=== PATIENT | born 1995 | race African-American/Black ===

== ENCOUNTER 2025-03-30 01:49 | Emergency (ER) | payer BC, SELFPAY ==
[2025-03-30 01:51] VITALS: BP 136/86
[2025-03-30 02:44] VITALS: BMI 26.2
[2025-03-30 02:46] VITALS: BP 126/83
--- NOTE | 2025-03-30 05:24 | ED.GENMED ---
History of Present Illness
General
Chief Complaint: Skin Surface Trauma
Source: patient
Exam Limitations: none
Time Seen by Provider: 03/30/25 04:34
Nursing documentation reviewed up to this point in time: agreed with
History of Present Illness
History of Present Illness:
29-year-old male presenting to the emergency department today with concerns of a cut to his right thumb that occurred from a broken dish at home. Denies any difficulty with movement any numbness or weakness. He is unsure when his last tetanus shot
was received
Review of Systems
Review of Systems
Allergies reviewed?: Yes
All Other Systems: ROS reviewed and negative except as documented in HPI and ROS
Phy Exam
Physical Exam
Physical Exam:
GENERAL: Alert , in no apparent distress
EYE: pupils equal and reactive
NECK: Supple, no significant adenopathy.
ENT: o/p clr, mmm.
CARDIAC: Regular rate and rhythm .
LUNGS: Clear breath sounds bilaterally, no acute respiratory distress, no wheezes/rales/rhonchi
ABDOMEN: Soft, without focal tenderness, no r/g, no cvat
NEUROLOGICAL: Alert and oriented, no focal neuro deficits
SKIN: 2.5 cm laceration to the dorsal aspect of the base of the thumb subcutaneous depth warm and dry, skin intact.
MUSCULOSKELETAL: No edema, well perfused.
PSYCH: Normal and appropriate interaction.
Course
Orders/Labs/Results
Orders:
Orders
03/30/25 05:25
Tetanus/Diphth/Acelpertussis [Adacel] 0.5 ml IM .ONCE ONE
Vital Signs
Initial and Last Documented VS:
Initial Vital Signs
Temp Pulse Resp BP Pulse Ox
98.4 F 86 18 136/86 98
03/30/25 01:51 03/30/25 01:51 03/30/25 01:51 03/30/25 01:51 03/30/25 01:51
Last Documented Vital Signs
Temp Pulse Resp BP Pulse Ox
97.8 F 73 16 126/83 97
03/30/25 02:46 03/30/25 02:46 03/30/25 02:46 03/30/25 02:46 03/30/25 05:25
Procedures
Laceration Closure
Right Dorsal Thumb:
Status of Wound: clean
Size of Wound in cm: 2.5
Description of Wound Edges: sharp
Preparation: cleaned with saline
Anesthesia: 1% Lidocaine with epi
Revision/Debridement: routine- no revision
Wound exploration: explored to base- no FB
Type of Closure: single layer closure
Skin Closure Material: 4-0 nylon
Number of sutures: 3
MDM/Problems Addressed
MDM/Problems Addressed:
29-year-old male presenting to the emergency department today with concerns of laceration of the base of his right thumb. This was cleaned thoroughly and closed with 3 stitches. No involvement of any deeper tissue explored to its base no
involvement of the bone. He was given an updated tetanus shot. Very low risk for infection was not started on prophylactic antibiotics. Return precautions given advised for suture removal in 12 to 14 days.
*Pulse Oximetry
SaO2: 97
Oxygen Mode of Delivery: Room air
Patient hypoxic: no (97)
*Critical Care Note
Total Time (30-74mins, 75-104mins- exclusive of procedures): Not Applicable
ED Attending Note
-
Portions of this chart may have been created with voice recognition software.� Occasional wrong word or��sound alike� substitutions may have occurred due to the inherent limitations of voice recognition software.
Discharge Plan
Departure
Patient Disposition: Home (Routine Discharge)
Date of Disposition: 03/30/25
Time of Disposition: 05:25
Patient with high blood pressure during this ER visit?: No
Condition: Good
Covid-19: Not Applicable
Discharge Problem:
Laceration of thumb
Prescriptions:
No Action
No Current Medications
0
Referrals:
UNKNOWN - PT DOES,NOT KNOW [Family Provider]
Activity Restrictions/Additional Instructions:
You came to the emergency department today with concerns of a laceration. This was cleaned thoroughly and closed with 3 not dissolving stitches. Please keep the area clean covered and follow-up in 12 to 14 days for suture removal. Return for any
worsening, new or concerning symptoms.
Interventions
Interventions:
*Risk Screen - Suicide Last Done: 03/30/25 01:51
*General Assessment Last Done: 03/30/25 02:44
*Neglect/Abuse Screening Last Done: 03/30/25 01:51
*ED- Fall Risk Assessment Last Done: 03/30/25 02:44
*ED COVID-19 Vaccine History Last Done: 03/30/25 02:44
*ED Influenza Vaccine History Last Done: 03/30/25 02:44
ED-Skin Assessment Last Done: 03/30/25 02:46
Discharge Date and Time
Print Language: WOLOF
[2025-03-30] MEDS: ADACEL 0.5 ML IM (06:00)
[2025-03-30 06:05] VITALS: BP 119/78
== END 2025-03-30 06:07 | disposition home or self-care (01) ==
LOC: EMR 01:49
PROVIDERS: EMERGENCY PHYSICIAN Emergency Medicine
DX: S61.011A Laceration without foreign body of right thumb without damage to nail, initial encounter (principal); Z23 Encounter for immunization; W45.8XXA Other foreign body or object entering through skin, initial encounter
CPT/HCPCS: 99282; 12001; 90471; 90715